=== PATIENT | female | born 1940 | race African-American/Black ===

== ENCOUNTER 2021-12-29 11:45 | Emergency (ER) | payer MEDICARE, MEDICAID ==
[~2021-12-29] VITALS: Ht 172.7 cm; Wt 128.0 kg
[2021-12-29 12:54] LABS: EOSINOPHILS % 1.7 % (0.0-5.0); HEMATOCRIT. 27.9 % (36.0-48.0); LYMPHOCYTES % 21.9 % (20.0-50.0); MEAN CORPUSCULAR HEMOGLOBIN 30.8 pg (28.0-32.0); MEAN CORPUSCULAR VOLUME 95.6 fL (81.0-99.0); NEUTROPHILS % 65.4 % (40.0-76.0); RED BLOOD CELL COUNT 2.91 mill/uL (4.2-5.4); RED CELL DISTRIBUTION WIDTH 17.3 % (11.6-14.6)
[2021-12-29 13:00] LABS: CHLORIDE 107 mEq/L (98-107)
[2021-12-29 13:09] LABS: MEAN PLATELET VOLUME 7.2 fl (7.4-10.4); PLATELET 461 x1000/uL (130-400)
[2021-12-29 20:14] VITALS: BP 132/54
== END 2021-12-29 20:51 | disposition home or self-care (01) ==
LOC: ER 11:56
DX: D64.9 Anemia, unspecified (principal); I10 Essential (primary) hypertension; E11.9 Type 2 diabetes mellitus without complications
CPT/HCPCS: 36415; 80053; 85025; 93005; 99283